=== PATIENT | female | born 1955 | race Caucasian/White ===

== ENCOUNTER 2016-04-18 10:51 | Outpatient (CLI) | payer BC ==
[~2016-04-18] VITALS: Ht 157.5 cm; Wt 90.9 kg
--- NOTE | ~2016-04-18 | HEMODYNAMI ---
PATIENT:ELIZABETH SON MEDICAL RECORD: [id number] : 51 LOCATION:[facility] ADMISSION DATE: 04/18/16 Generatedon:04/18/201614:58 Patient name: ELIZABETH SON Patient #: [id number] SSN: DO B: 1955 Date of study: 04/18/2016 Page: Of Hemodynamic Procedure Report Patient Data Patient Demographics Procedure consent was obtained First Name: ELIZABETH Gender: Female Last Name: ADELAIDA : 1955 Patient #: [id number] Age: 60 year(s) Race: Additional ID: [id number] Contact details Address: [address] State: [place] City: [place] Zip code: [address] Past Medical History Allergies: No known allergies Admission Admission Data Admission Date: 04/18/2016 Admission Time: 10:51 Lab Results Lab Result Date: 04/18/2016 Lab Result Time: 0:00 Biochemistry Name Units Result Min Max Creatinine mg/dl 0.7 --(*---)-- 0.6 1.3 CBC Name Units Result Min Max Hemoglobin g/dl 12.8 -*(----)-- 13.5 17.5 Procedure Procedure Types Cath Procedure Diagnostic Procedure [facility] w/Coronaries Miscellaneous Procedures Moderate Sedation up to 45 minutes Procedure Description Procedure Date Procedure Date: 04/18/2016 Procedure Start Time: 14:21 Procedure End Time: 14:57 Procedure Staff Name Function Troy Mi MD Performing Physician Karina Lucia RT Scrub Dane Valladares RN Nurse Efrain Amado RT Monitor Procedure Data Cath Procedure Fluoroscopy Diagnostic fluoroscopy Total fluoroscopy Time: 8.6 time: 8.6 min min Diagnostic fluoroscopy Total fluoroscopy dose: dose: 1027 mGy 1027 mGy Contrast Material Contrast Material Type Amount (ml) Isovue 300 92 Entry Location Entry Primary Successful Side Size Upsize Upsize Entry Closure [place] ccessful Closure Location (Fr) 1 (Fr) 2 (Fr) Remarks Device Remarks Radial Right 6 Fr Mechanical artery Short Compression Femoral Right 5 Fr Exoseal artery Estimated blood loss: 5 ml Diagnostic catheters Device Type Used For End Catheter Placement Terumo 5Fr [place] 110cm LV Angiography catheter Diagnostic Infinity 5Fr Right Coronary AR 1 MOD catheter Angiography Terumo 5Fr Héctor 110cm Left Coronary catheter Angiography Diagnostic Infinity 5Fr JL 3.5 catheter Diagnostic Infinity 5Fr Left Coronary JL 4.0 catheter Angiography Procedure Complications No complications Procedure Medications Medication Administration Route Dosage Oxygen NC 2 l/min Heparin Flush Bag added to field 2 bags (1000units/500ml NS) Radial Cocktail added to field 1 syringe (Verapomil 2mg/Nitro 400mcg/Heparin 1500units) Fentanyl I.V. 50 mcg Versed I.V. 1 mg Fentanyl I.V. 50 mcg Versed I.V. 1 mg Radial Cocktail I.A. 1 syringe (Verapomil 2mg/Nitro 400mcg/Heparin 1500units) Fentanyl I.V. 50 mcg Hemodynamics Rest HGB: 12.8 (g/dl) Heart Rate: 90 (bpm) Pressure Samples Time Site Value (mmHg) Purpose Heart Use Rate(bpm) 14:25 LV 133/-1,4 EDP 96 14:26 AO 143/90(111) Pullback 96 14:26 LV 143/-1,8 Pullback 96 Gradients Valve Time Site 1 Site 2 Mean SEP/DFP Peak To Heart Use (mmHg) (sec/min) Peak Rate (mmHg) (bpm) Aortic 14:26 LV AO 9 20 0 96 143/-1,8 143/90(111) Calculations Valve P-P Mean Valve Index Valve Source Name Gradient Area Flow (cm2) Aortic 0 9 0 9 Snapshots Pre Cath Intra NCS Post Cath Vital Signs Time Heart Resp SPO2 NIBP (mmHg) Rhythm Pain Sedation Rate (ipm) (%) Status Level (bpm) 14:05:42 95 17 98 150/93(120) NSR 0 (11) 10(A) , No pain 14:09:55 91 16 96 149/95(116) NSR 0 (11) 10(A) , No pain 14:14:10 89 18 96 144/92(116) NSR 0 (11) 10(A) , No pain 14:18:19 89 16 93 146/97(115) NSR 0 (11) 9(A) , No pain 14:22:33 88 16 94 141/87(120) NSR 0 (11) 9(A) , No pain 14:26:45 93 17 95 135/86(112) NSR 0 (11) 9(A) , No pain 14:30:53 90 16 94 143/92(117) NSR 0 (11) 9(A) , No pain 14:35:07 85 18 94 132/86(109) NSR 0 (11) 9(A) , No pain 14:39:17 83 18 94 127/80(104) NSR 0 (11) 9(A) , No pain 14:43:27 82 19 94 130/78(104) NSR 0 (11) 9(A) , No pain 14:47:37 81 19 95 131/82(116) NSR 0 (11) 9(A) , No pain 14:51:46 81 19 94 131/80(110) NSR 0 (11) 9(A) , No pain 14:55:56 81 9 96 136/81(101) NSR 0 (11) 9(A) , No pain Medications Time Medication Route Dose Verified Delivered Reason Notes Effectiveness by by 14:13:11 Oxygen NC 2 l/min Dane Vela Per Blaine Valladares RN physician RN 14:13:25 Heparin Flush added 2 bags Dane Vela used for Bag to Blaine Valladares small business consultant (1000units/500ml field RN NS) 14:13:43 Radial Cocktail added 1 Dane Dane used for (Verapomil to syringe Blaine Valladares small business consultant 2mg/Nitro field RN 400mcg/Heparin 1500units) 14:14:47 Fentanyl I.V. 50 mcg Dane Dane for sedation Blaine Valladares RN RN 14:14:55 Versed I.V. 1 mg Dane Dane for sedation Blaine Valladares RN RN 14:20:59 Fentanyl I.V. 50 mcg Dane Dane for sedation Blaine Valladares RN RN 14:21:04 Versed I.V. 1 mg Dane Dane for sedation Blaine Valladares RN RN 14:24:28 Radial Cocktail I.A. 1 Dane Troy for (Verapomil syringe Blaine Mi MD vasodilation 2mg/Nitro RN 400mcg/Heparin 1500units) 14:39:41 Fentanyl I.V. 50 mcg Dane Vela for sedation Blaine Valladares RN hydraulic assembler Log Time Note 13:50:24 Dane Valladares RN sent for patient. Start room use. 13:57:06 Diagnostic Cath Status : Elective 13:57:23 Time tracking: Regular hours 13:57:29 Plan of Care:Hemodynamics will remain stable., Cardiac rhythm will remain stable., Comfort level will be maintained., Respiratory function will remain adequate., Patient/ family verbilizes understanding of procedure., Procedure tolerated without complication., Recovers from procedure without complications.. 14:00:13 Patient received from Pre/Post Procedure Room to CCL 2 Alert and oriented. Tansferred to table in Supine position. 14:00:14 Warm blankets applied, and talita hugger turned on for patient comfort. 14:00:15 Correct patient and procedure confirmed by team. 14:00:16 Signed procedure consent form obtained from patient. 14:00:16 ECG and BP/O2 sat monitors applied to patient. 14:04:39 Vital chart was started 14:10:22 Baseline sample Acquired. 14:10:23 Full Disclosure recording started 14:10:26 Rhythm: sinus rhythm 14:10:37 H&P Date Dictated: 04/07/2016 Within 30 days and on chart., H&P Addendum completed by physician on day of procedure. (MUST COMPLETE FOR ALL OUTPATIENTS). 14:10:38 Pre-procedure instructions explained to patient. 14:10:39 Pre-op teaching completed and patient verbalized understanding. 14:10:40 Family in waiting room. 14:10:43 Patient NPO since Dinner. 14:10:54 Patient allergic to No known allergies 14:10:59 Is the patient allergic to Iodine/contrast media? No. 14:11:02 Is patient on blood thinner?No 14:11:06 Patient diabetic? No. 14:11:11 Previous problem with sedation/anesthesia? No ? 14:11:16 Snore? Yes 14:11:17 Sleep apnea? No 14:11:18 Deviated septum? No 14:11:19 Opens mouth fully? No 14:11:22 Sticks out tongue? Yes 14:11:24 Airway obstruction? No ? 14:11:31 Dentures? No ? 14:11:35 Pre procedure: right dorsailis pedis pulse 2+ Normal; easily identifiable; not easily obliterated 14:11:36 Modified Eliseo's test Ulnar < 7 seconds 14:11:38 Patient pain scale 0/10 ?. 14:11:43 IV patent on arrival in left hand with 0.9% NaCl at [facility]. 14:12:16 Lab Result : Creatinine 0.7 mg/dl 14:12:16 Lab Result : Hemoglobin 12.8 g/dl 14:12:20 Lab results completed and on chart. 14:12:23 Right Radial & Right Groin area was prepped with chlora-prep and draped in sterile fashion 14:12:24 Alarms reviewed by R. N. 14:12:24 Sharps counted by scrub and verified by R.N. 14:12:26 Use device set Radial Dx 14:12:27 Acist Syringe opened to sterile field. 14:12:27 Medline Cath Pack opened to sterile field. 14:12:28 Bag Decanter opened to sterile field. 14:12:28 Terumo 6Fr Slender Glidesheath opened to sterile field. 14:12:29 St Bandar 260cm J .035 wire opened to sterile field. 14:12:29 Acist Hand Control opened to sterile field. 14:12:30 Acist Manifold opened to sterile field. 14:12:30 Tegaderm 4 x 4 opened to sterile field. 14:12:33 Baseline sample Acquired. 14:13:11 Oxygen 2 l/min NC was given by Dane Valladares RN; Per physician; 14:13:25 Heparin Flush Bag (1000units/500ml NS) 2 bags added to field was given by Dane Valladares RN; used for procedure; 14:13:43 Radial Cocktail (Verapomil 2mg/Nitro 400mcg/Heparin 1500units) 1 syringe added to field was given by Dane Valladares RN; used for procedure; 14:14:25 Final Timeout: patient, procedure, and site verified with staff and physician. All members of the team are in agreement. 14:14:28 Right Radial site verified by team. 14:14:31 Physical assessment completed. ASA score P 2 - A patient with mild systemic disease as per Troy Mi MD. 14:14:34 Sedation plan: IV Moderate Sedation Versed, Fentanyl 14:14:47 Fentanyl 50 mcg I.V. was given by Dane Valladares RN; for sedation; 14:14:55 Versed 1 mg I.V. was given by Dane Valladares RN; for sedation; 14:18:22 Zero performed for pressure channel P1 14:20:59 Fentanyl 50 mcg I.V. was given by Dane Valladares RN; for sedation; 14:20:59 Procedure started. 14:21:04 Versed 1 mg I.V. was given by Dane Valladares RN; for sedation; 14:21:09 Local anesthetic to right radial artery with Lidocaine 2% by Troy Mi MD.INITIAL ACCESS ONLY 14:22:10 A 6 Fr Short sheath was inserted into the Right Radial artery 14:24:26 A Terumo 5Fr [place] 110cm catheter was advanced over the wire and used for LV Angiography. 14:24:28 Radial Cocktail (Verapomil 2mg/Nitro 400mcg/Heparin 1500units) 1 syringe I.A. was given by Troy Mi MD; for vasodilation; 14:26:02 LV gram done using BROTHERS 14:26:14 EF : 20 % 14:26:15 LV hemodynamics recorded. 14:26:19 Injector settings: Ml/sec: 5, Volume: 15, 14:28:14 Catheter removed. 14:28:34 A Diagnostic Infinity 5Fr AR 1 MOD catheter was advanced over the wire and used for Right Coronary Angiography. 14:30:57 Catheter removed. 14:31:02 A Terumo 5Fr Héctor 110cm catheter was advanced over the wire and used for Left Coronary Angiography.removed unable to cannulate. 14:33:42 Catheter removed. 14:33:56 Medtronic Launcher 5Fr EBU 3.5 guide catheter opened to sterile field. 14:34:52 5 Fr EBU 3.5 guide catheter was inserted over the wire 14:36:54 Guide Catheter removed. unable to cannulate vessel. 14:38:47 A Diagnostic Infinity 5Fr JL 3.5 catheter was advanced over the wire and used for .removed unable to cannulate. 14:38:58 Terumo 5Fr [place] Sheath opened to sterile field. 14:39:10 Local anesthetic to right femoral artery with Lidocaine 2% by Troy Mi MD.ADDITIONAL ACCESS 14:39:41 Fentanyl 50 mcg I.V. was given by Dane Valladares RN; for sedation; 14:41:24 A 5 Fr sheath was inserted into the Right Femoral artery 14:41:49 A Diagnostic Infinity 5Fr JL 4.0 catheter was advanced over the wire and used for Left Coronary Angiography. 14:44:49 Catheter removed. 14:45:13 Terumo TR Band Standard opened to sterile field. 14:45:13 Cordis 5Fr Exoseal opened to sterile field. 14:45:23 Sheath removed intact; hemostasis achieved with Exoseal to the Right Femoral artery. 14:46:18 Sheath removed intact; hemostasis achieved with Mechanical Compression to the Right Radial artery. 14:46:24 Procedure ended.(Physican Out) 14:46:40 Fluoroscopy time 08.60 minutes. 14:46:51 Fluoroscopy dose: 1027 mGy 14:46:51 Flurop Dose total: 1027 14:46:56 Contrast amount:Isovue 300 92ml. 14:46:58 Sharps counted by scrub and verified by R.N. 14:47:01 TR band inflated with 12cc of air. 14:47:02 Insertion/operative site no bleeding no hematoma. 14:47:05 Post-op/insertion site Right Femoral artery dressed using a 4 x 4 and Tegaderm. 14:47:12 Post right radial artery:stable, clean and dry 14:47:13 Post Procedure Pulses reassessed and unchanged 14:47:19 Post-procedure physical assessment completed. ASA score P 2 - A patient with mild systemic disease as per Troy Mi MD. 14:47:22 Post procedure rhythm: unchanged. 14:47:25 Estimated blood loss: 5 ml 14:47:27 Post procedure instruction explained to patient.Patient verbalizes understanding. 14:47:27 Patient needs reinforcement of post procedure teaching. 14:47:54 Procedure type changed to Cath procedure, Diagnostic procedure, LHC, LHC w/Coronaries, Miscellaneous Procedures, Moderate Sedation up to 45 minutes 14:48:00 Procedure Complication : No complications 14:48:03 See physician's report for complete and final results. 14:49:00 Cook 21G 4cm Radial Needle opened to sterile field. 14:49:39 Procedure and supply charges have been captured, reviewed, submitted and are correct. 14:55:17 Vital chart was stopped 14:55:26 Report given to ED. 14:57:18 Patient transfered to Pre/Post Procedure Room with Stretcher. 14:57:22 Procedure ended. 14:57:22 Full Disclosure recording stopped 14:57:46 End room use (Document Last) Device Usage Item Name Manufacture Quantity Catalog Hospital Part Current Minimal Lot# / Number Charge Number Stock Stock Serial# Code Acist Acist 1 91497 241827 049122 996524 20 Syringe Medical [employer] Inc Medline Cardinal 1 [id number] 914140 64157 684958 5 Cath Pack Health Bag Microtek 1 2001S 648798 42932 931294 5 [employer] Inc. Terumo 6Fr Terumo 1 [id number] 113381 002437 789200 [address] St Bandar 1 613455 099510 417326 903511 30 260cm J .035 wire Acist Hand Acist 1 74046 333972 199132 738453 5 Control Medical Systems Inc Acist Acist 1 76987 619178 634784 469975 5 Manifold Medical Systems Inc Tegaderm 4 3M 1 1626W 659464 173353 397355 5 x 4 Terumo 5Fr Terumo 1 40-5013 774594 667787 854209 5 [place] 110cm catheter Diagnostic Cardinal 1 [id number] 392885 117288 876023 15 Infinity Health 5Fr AR 1 MOD catheter Terumo 5Fr Terumo 1 40-5023 807597 185411 698612 5 Héctor 110cm catheter Medtronic Medtronic 1 [id number] 001092 000551 915723 1 Launcher 5Fr EBU 3.5 guide catheter Diagnostic Cardinal 1 [id number] 867175 241537 368128 5 Infinity Health 5Fr JL 3.5 catheter Terumo 5Fr Terumo 1 FYT422 779350 357028 788022 40 [place] Sheath Diagnostic Cardinal 1 [id number] 570380 010570 853431 10 Infinity Health 5Fr JL 4.0 catheter Terumo TR Terumo 1 [id number] 749541 567511 375582 40 Band Standard Cordis 5Fr Cardinal 1 EX500 508710 800486 558495 10 Accupass Cook 21G Fromography 1 X95249 088516 069720 5 4cm Radial Needle Signature Audit [place] Stage Time Signature Unsigned Intra-Procedure 04/18/2016 Karina 2:58:01 PM Counts RT(R) Signatures Monitor : Efrain Amado RT Signature : Date : Time : [id number] [place] [address]
[2016-04-18 11:52] LABS: BASOPHILS 0.4 % (0.0-2.0); HEMATOCRIT 38.3 % (36.0-48.0); HEMOGLOBIN 12.8 g/dL (12-16); IMMATURE GRANULOCYTES 0.4 % (0-5); LYMPHOCYTES 23.7 % (15-50); MCH 29.4 pg (26.0-34.0); MCHC 33.4 g/dL (31.0-37.0); MEAN PLATELET VOLUME 10.8 fL (7.4-10.4); MONOCYTES 7.7 % (2-11); NEUTROPHILS 66.8 % (40-80); PLATELET COUNT 243 10x3/uL (130-400); RBC 4.35 10x6/uL (4.00-5.40); RDW 13.8 % (11.5-14.5); WBC 6.7 10x3/uL (4.8-10.8)
[2016-04-18 11:57] VITALS: BP 147/87; Ht 157.5 cm; Wt 90.9 kg
[2016-04-18] MEDS ORDERED: WELLBUTRIN SR150 MG PO (12:00)
[2016-04-18] MEDS ORDERED: PREVACID15 MG PO (12:00)
[2016-04-18] MEDS ORDERED: HYDROCHLOROTHIA25 MG PO (12:00)
[2016-04-18] MEDS ORDERED: MULTI-DAY VITAM1 TAB PO (12:01)
[2016-04-18] MEDS ORDERED: GLUCOPHAGE500 MG PO (12:01)
[2016-04-18 12:04] LABS: CALC OSMOLALITY 278 mosm/kg (275-300); CALCIUM 9.5 mg/dL (8.5-10.1); CARBON DIOXIDE 24.1 mmol/L (21.0-32.0); CHLORIDE - SERUM 102 mmol/L (98-107); CREATININE - SERUM 0.7 mg/dL (0.6-1.3); GLUCOSE 102 mg/dL (74-106); POTASSIUM - SERUM 3.3 mmol/L (3.5-5.1); SODIUM 139 mmol/L (136-145); UREA NITROGEN 15 mg/dL (7-18); eGFR NON AFRICAN AMERICAN 90 mL/min (90-120)
--- NOTE | 2016-04-18 16:24 | NUR ---
1515-RIGHT WRIST-TR BAND -CDI RIGHT GROIN-CDI 1545- BOTH SITES REMAIN UNCHANGED
--- NOTE | 2016-04-18 17:14 | NUR ---
1650-HAS HEADACHE WITH NAUSEA, ZOFRAN WAS GIVEN AT 1530, EMESIS X 1 NOTED. FAMILY AT SIDE. TR BAND WITH ALL AIR REMOVED- NO BLEEDING NOTED
--- NOTE | 2016-04-18 18:32 | NUR ---
1730-FEELING A LITTLE BETTER, UP TO RESTROOM TO VOID-NO PROBLEMS AT THIS TIME. 1735- IV D'C WITH CATH TIP INTACT, WRITTEN AND VERBAL INSTRUCTIONS GIVEN TO PT AND SISTER. RIGHT GROIN-CDI,NO HEMATOMA AT SITE, RIGHT WRIST WITH TR BAND OFF PER PROTOCOL WITH BANDAID AND BRACE IN PLACE. NO BLEEDING NOTED
--- NOTE | 2016-05-09 08:17 | OP ---
PATIENT NAME: ELIZABETH SON MEDICAL RECORD: [id number] :51 LOCATION:[facility] ADMISSION DATE: SURGEON: LUISA HAYWOOD M.D. DATE OF OPERATION: 04/18/2016 REFERRING PHYSICIAN: Dr. Den Apple at [place], [place]. PROCEDURES PERFORMED: 1. Selective coronary angiography. 2. Left heart catheterization with ventriculogram. INDICATION: A 60-year-old woman presents with symptoms of new onset cardiomyopathy, with ejection fraction of 20%. EQUIPMENT USED: A 5-Australian JL4, AR modified catheter, Carmi catheter. TECHNIQUE: Initially, the right radial artery was cannulated. A 6-Australian sheath was inserted in retrograde fashion. The right coronary artery was cannulated with an AR modified catheter. Left heart catheterization was performed using Carmi catheter. However, no catheter could engage the left main. At this point, a 5-Australian sheath was inserted in retrograde fashion in the right common femoral artery. Left main was cannulated with JL4 catheter. CORONARY ANATOMY: 1. Left main: Left main trunk is large in caliber. It gives rise to the LAD and circumflex. It is angiographically normal. 2. LAD: This is a large caliber vessel extending to the apex. The mild proximal vessel has some mild calcification, but nothing worse in 10% to 20%. This is a smooth-walled vessel and appears angiographically normal in its mid and distal segment. 3. Circumflex: This vessel is large in caliber. It provides a large lateral branch in mid segment. The circumflex and lateral branch are smooth-walled vessel and is angiographically normal. 4. Right coronary: This vessel is large in caliber and dominant. It provides the PDA and distal segment. This vessel is smooth-walled and angiographically normal. 5. Left ventricle: Left ventricle is dilated. The anterior and lateral hurtado are severely hypokinetic. Estimated ejection fraction is in the order of 20%. IMPRESSION: 1. Essentially normal coronary arteries. 2. Severe left ventricular dysfunction with ejection fraction 20%. RECOMMENDATIONS: We will place her on medical therapy for cardiomyopathy. If her ejection fraction not improved to 35% within 3 months, we will need to consider biventricular pacemaker. TRANSINT:[id number] Voice Confirmation ID: [id number] DOCUMENT ID: [id number] OPERATIVE REPORT [id number] KALDEM,ELIZABETHLUISA FRANCIS M.D. at 0817 CC: [id number] DICTATION DATE: 04/18/16 1453 DIRECTOR OF SAFETY: 04/18/16 2240 DEP CLI 04/18/16 [id number] [place] [id number]
== END 2016-04-18 17:40 | disposition home or self-care (01) ==
LOC: D.CATH 10:51
PROVIDERS: Internal Medicine Cardiovascular Disease
DX: I42.9 Cardiomyopathy, unspecified (principal); I51.9 Heart disease, unspecified